=== PATIENT | female | born 1995 | race Caucasian/White ===

== ENCOUNTER 2021-09-22 12:40 | Emergency (ER) | payer OTHER ==
[2021-09-22 12:52] VITALS: BP 117/90
== END 2021-09-22 14:14 | disposition home or self-care (01) ==
LOC: ED 12:40
DX: S16.1XXA Strain of muscle, fascia and tendon at neck level, initial encounter (principal); R51.9 Headache, unspecified; V89.2XXA Person injured in unspecified motor-vehicle accident, traffic, initial encounter; Y92.410 Unspecified street and highway as the place of occurrence of the external cause

== ENCOUNTER → 2023-11-29 | Outpatient (CLI) | payer OTHER ==
[2023-11-29 13:38] LABS: ALBUMIN 4.5 g/dL (3.5-5.0)
[2023-11-29 13:40] LABS: CALCIUM 9.2 mg/dL (8.3-10.5)
[2023-11-29 13:41] LABS: TOTAL PROTEIN 7.4 g/dL (6.4-8.3)
[2023-11-29 13:43] LABS: TOTAL BILIRUBIN 0.3 mg/dL (0.2-1.2)
== END ==
LOC: LAB 13:10
PROVIDERS: Family Medicine
DX: R11.2 Nausea with vomiting, unspecified (principal)

== ENCOUNTER 2023-11-30 22:55 | Emergency (ER) | payer OTHER ==
[2023-11-30 23:00] VITALS: BP 135/78
[2023-11-30] MEDS ORDERED: Proparacaine 0.5% Ophth Soln 15 ML BOTTLE *BULK OP ONE (23:15)
== END 2023-11-30 23:36 | disposition home or self-care (01) ==
LOC: ED 22:55
DX: T65.891A Toxic effect of other specified substances, accidental (unintentional), initial encounter (principal); H57.12 Ocular pain, left eye; Y92.009 Unspecified place in unspecified non-institutional (private) residence as the place of occurrence of the external cause